=== PATIENT | female | born 1965 | race Caucasian/White ===

== ENCOUNTER 2018-05-14 11:28 | Outpatient (CLI) | payer MEDICARE ==
[~2018-05-14] VITALS: Ht 144.8 cm; Wt 95.5 kg
--- NOTE | ~2018-05-14 | OP ---
PATIENT NAME: MARY BELLO MEDICAL RECORD: [id number] :69 LOCATION:D.CAT ADMISSION DATE: SURGEON: LIBRA CHOWDHURY MD DATE OF OPERATION: 05/14/2018 PROCEDURE: Left heart catheterization, selective coronary angiography, right radial artery approach. CATHETERS: Radial sheath, Loco catheter. The procedure was well tolerated. The patient returned to [facility]. Sheath removed. TR band was placed. FINDINGS: Left ventriculography in 30-degree AUGUSTIN view: Normal wall motion, normal systolic function. CORONARY ANATOMY: LEFT MAIN: Left main is free of disease. LAD: Free of disease as is diagonal system. CIRCUMFLEX: Free of disease in marginal system. RIGHT CORONARY ARTERY: Dominant artery, gives rise to PDA, free of disease. IMPRESSION: Normal systolic function, normal coronary anatomy. TRANSINT:[id number] Voice Confirmation ID: [id number] DOCUMENT ID: [id number] LIBRA CHOWDHURY MD at 1505 CC: [id number] DICTATION DATE: 05/14/18 1441 ANALYTICS ARCHITECT: 05/14/18 1511 DEP CLI 05/14/18 [id number] [place] [address]
--- NOTE | ~2018-05-14 | HEMODYNAMI ---
PATIENT:MARY BELLO MEDICAL RECORD: [id number] : 69 LOCATION:[facility] ADMISSION DATE: 05/14/18 Generatedon:05/14/201814:36 Patient name: MARY BELLO Patient #: [id number] SSN: : 1965 Date of study: 05/14/2018 Page: Of Hemodynamic Procedure Report Patient Data Patient Demographics Procedure consent was obtained First Name: MARY Gender: Female Last Name: EUGENIA : 1965 Middle Initial: MASOUD Age: 52 year(s) Patient #: [id number] Race: Unknown Additional ID: [id number] Contact details [address]: [address] [place] [address] State: [place] City: [place] Zip code: [address] Past Medical History Allergies Allergen Reaction Date Comments Reported Other allergy 05/14/2018 LATEX Admission Admission Data Admission Date: 05/14/2018 Admission Time: 13:30 Admit Source: Other Lab Results Lab Result Date: 05/14/2018 Lab Result Time: 0:00 Biochemistry Name Units Result Min Max BUN mg/dl 12 --(-*--)-- 7 18 Creatinine mg/dl 0.7 --(*---)-- 0.6 1.3 CBC Name Units Result Min Max Hemoglobin g/dl 13.6 --(*---)-- 13.5 17.5 Procedure Procedure Types Cath Procedure Diagnostic Procedure C [place] w/Coronaries Sedation Charges Moderate Sedation up to 15 minutes Procedure Description Procedure Date Procedure Date: 05/14/2018 Procedure Start Time: 14:23 Procedure End Time: 14:35 Procedure Staff Name Function Jose Alfredo Westbrook MD Performing Physician Guillermo Still RN Nurse Yesenia Osman RT Monitor Falguni Izaguirre RT Scrub Procedure Data Cath Procedure Fluoroscopy Diagnostic fluoroscopy Total fluoroscopy Time: 1.8 time: 1.8 min min Diagnostic fluoroscopy Total fluoroscopy dose: 428 dose: 428 mGy mGy Contrast Material Contrast Material Type Amount (ml) Isovue 300 40 Entry Location Entry Primary Successful Side Size Upsize Upsize Entry Closure Meyers ccessful Closure Location (Fr) 1 (Fr) 2 (Fr) Remarks Device Remarks Radial Right 6 Fr Mechanical artery Short Compression Estimated blood loss: 5 ml Diagnostic catheters Device Type Used For End Catheter Placement DIAGNOSTIC [place] 110cm 5 Procedure Fr catheter ([id number]) Procedure Complications No complications Procedure Medications Medication Administration Route Dosage Oxygen NC 2 l/min Lidocaine 2% added to field 20 Heparin Flush Bag added to field 2 bags (1000units/500ml NS) 0.9% NaCl I.V. 100 ml/hr Radial Cocktail I.A. 1 syringe (Verapomil 2mg/Nitro 400mcg/Heparin 1500units) Versed I.V. 1 mg Fentanyl I.V. 50 mcg Versed I.V. 1 mg Fentanyl I.V. 50 mcg Versed I.V. 1 mg Fentanyl I.V. 50 mcg Versed I.V. 1 mg Fentanyl I.V. 50 mcg Hemodynamics Rest HGB: 13.6 (g/dl) Heart Rate: 97 (bpm) Pressure Samples Time Site Value (mmHg) Purpose Heart Use Rate(bpm) 14:29 LV 108/10,9 Snapshot 102 14:29 AO 102/83(92) Pullback 103 14:29 LV 89/24,33 Pullback 103 Gradients Valve Time Site 1 Site 2 Mean SEP/DFP Peak To Heart Use (mmHg) (sec/min) Peak Rate (mmHg) (bpm) Aortic 14:29 LV AO 0 103 89/24,33 102/83(92) Calculations Valve P-P Mean Valve Index Valve Source Name Gradient Area Flow (cm2) Aortic 0 0 Snapshots Pre Cath Intra NCS Post Cath Vital Signs Time Heart Resp SPO2 etCO2 NIBP (mmHg) Rhythm Pain Sedation Rate (ipm) (%) (mmHg) Status Level (bpm) 14:05:19 96 17 100 39.6 139/92(115) NSR 0 (11) 10(A) , No pain 14:09:27 99 21 100 39.6 140/91(104) NSR 0 (11) 10(A) , No pain 14:13:35 99 15 100 39.6 139/87(111) NSR 0 (11) 10(A) , No pain 14:17:41 96 16 100 40.4 130/86(114) NSR 0 (11) 10(A) , No pain 14:21:46 99 14 98 31.4 123/79(99) NSR 0 (11) 10(A) , No pain 14:25:46 98 16 100 39.6 132/83(107) NSR 0 (11) 10(A) , No pain 14:29:54 103 14 98 39.6 115/71(93) NSR 0 (11) 10(A) , No pain 14:33:54 101 15 96 40.3 116/77(101) NSR 0 (11) 10(A) , No pain Medications Time Medication Route Dose Verified Delivered Reason Notes Effectiveness by by 14:03:39 Oxygen NC 2 l/min Jose Alfredo Buffie used for [facility] Still RN procedure 14:03:46 Lidocaine 2% added 20ml Jose Alfredo Jose Alfredo for local to vial On License Of [facility] anesthetic field MD PARKER 14:03:53 Heparin Flush added 2 bags Jose Alfredo Veliz used for Bag to On License Of [facility] procedure (1000units/500ml field MD PARKER NS) 14:04:01 0.9% NaCl I.V. 100 Jose Alfredo Buffie Per ml/hr [facility] Still RN physician 14:04:08 Radial Cocktail I.A. 1 Jose Alfredo Greenory for (Verapomil syringe On License Of [facility] vasodilation 2mg/Nitro MD PARKER 400mcg/Heparin 1500units) 14:16:35 Versed I.V. 1 mg Jose Alfredo Buffie for sedation [facility] Still RN, MD 14:16:42 Fentanyl I.V. 50 mcg Jose Alfredo Jeongie for sedation [facility] Still RN, MD 14:20:16 Versed I.V. 1 mg Jose Alfredo Buffie for sedation [facility] Still RN, MD 14:20:20 Fentanyl I.V. 50 mcg Jose Alfredo Buffie for sedation [facility] Still RN, MD 14:23:37 Versed I.V. 1 mg Jose Alfredo Buffie for sedation [facility] Still RN, MD 14:23:41 Fentanyl I.V. 50 mcg Jose Alfreod Buffie for sedation [facility] Still RN, MD 14:28:09 Versed I.V. 1 mg Jose Alfredo Jeongie for sedation [facility] Still RN, MD 14:28:12 Fentanyl I.V. 50 mcg Jose Alfredo Jeongie for sedation [facility] Still RN, MD Procedure Log Time Note 13:29:04 Informed consent obtained and on chart 13:29:15 Admit Source: Other 13:29:34 Diagnostic Cath status Elective 13:29:39 Time tracking: Regular hours (M-F 7:00 - 5:00) 13:29:42 Plan of Care:Hemodynamics will remain stable., Cardiac rhythm will remain stable., Comfort level will be maintained., Respiratory function will remain adequate., Patient/ family verbilizes understanding of procedure., Procedure tolerated without complication., Recovers from procedure without complications.. 13:46:54 Daniel Resendez RT(R) sent for patient. Start room use. 14:03:39 Oxygen 2 l/min NC was administered by Guillermo Still RN; used for procedure; 14:03:46 Lidocaine 2% 20ml vial added to field was administered by Jose Alfredo Westbrook MD; for local anesthetic; 14:03:53 Heparin Flush Bag (1000units/500ml NS) 2 bags added to field was administered by Jose Alfredo Westbrook MD; used for procedure; 14:04:01 0.9% NaCl 100 ml/hr I.V. was administered by Guillermo Still RN; Per physician; 14:04:08 Radial Cocktail (Verapomil 2mg/Nitro 400mcg/Heparin 1500units) 1 syringe I.A. was administered by Jose Alfredo Westbrook MD; for vasodilation; 14:04:11 Vital chart was started 14:07:38 Patient received from Pre/Post Procedure Room to CCL 2 Alert and oriented. Tansferred to table in Supine position. 14:07:39 Warm blankets applied, and kathryn hugger turned on for patient comfort. 14:07:40 Correct patient and procedure confirmed by team. 14:07:40 ECG and BP/O2 sat monitors applied to patient. 14:07:43 Baseline sample Acquired. 14:07:56 Rhythm: sinus rhythm 14:08:03 Full Disclosure recording started 14:09:10 H&P Date Dictated: 05/08/2018 Within 30 days and on chart., H&P Addendum completed by physician on day of procedure. (MUST COMPLETE FOR ALL OUTPATIENTS). 14:09:27 Pre-procedure instructions explained to patient. 14:09:28 Pre-op teaching completed and patient verbalized understanding. 14:09:40 Family in patients room. 14:09:41 Patient NPO since Midnight. 14:10:02 Patient allergic to Other allergyLATEX 14:10:06 Is the patient allergic to Iodine/contrast media? No. 14:10:40 Is patient on blood thinner?No 14:10:41 Patient diabetic? No. 14:10:45 Previous problem with sedation/anesthesia? No ? 14:10:46 Snore? Yes 14:10:47 Sleep apnea? No 14:10:48 Deviated septum? No 14:10:49 Opens mouth fully? Yes 14:10:50 Sticks out tongue? Yes 14:10:54 Airway obstruction? Yes ASTHMA 14:10:57 Dentures? No ? 14:11:01 Modified Hever's test Ulnar < 7 seconds 14:11:04 Patient pain scale 0/10 ?. 14:11:14 IV patent on arrival in left hand with 0.9% NaCl at [facility]. 14:12:29 Lab Result : Creatinine 0.7 mg/dl 14:12:29 Lab Result : BUN 12 mg/dl 14:12:29 Lab Result : Hemoglobin 13.6 g/dl 14:12:31 Lab results completed and on chart. 14:12:35 Right Radial & Right Groin area was prepped with chlora-prep and draped in sterile fashion 14:12:36 Alarms reviewed by R. N. 14:12:36 Sharps counted by scrub and verified by R.N. 14:12:39 Use device set Radial Dx or PCI 14:12:40 ACIST Syringe (25067) opened to sterile field. 14:12:41 Bag Decanter () opened to sterile field. 14:12:42 ACIST Hand Control (40413) opened to sterile field. 14:12:42 ACIST Manifold (35031) opened to sterile field. 14:12:43 Tegaderm 4 x 4 (1626W) opened to sterile field. 14:12:45 Medline Cath Pack ([id number]) opened to sterile field. 14:12:45 DIAGNOSTIC WIRE .035 260cm J wire (616288) opened to sterile field. 14:12:46 MBrace Wrist Support ([id number]) opened to sterile field. 14:12:47 SHEATH 6Fr Prelude Radial ([id number]) opened to sterile field. 14:16:27 --------ALL STOP TIME OUT------ 14:16:27 Final Timeout: patient, procedure, and site verified with staff and physician. All members of the team are in agreement. 14:16:30 Right Radial & Right Groin site verified by team. 14:16:33 Physical assessment completed. ASA score P 2 - A patient with mild systemic disease as per Jose Alfredo Westbrook MD. 14:16:35 Versed 1 mg I.V. was administered by Guillermo Still RN; for sedation; 14:16:36 Sedation plan: IV Moderate Sedation Medication:Versed, Fentanyl 14:16:42 Fentanyl 50 mcg I.V. was administered by Guillermo Still RN; for sedation; 14:16:45 Zero performed for pressure channel P1 14:20:16 Versed 1 mg I.V. was administered by Guillermo Still RN; for sedation; 14:20:20 Fentanyl 50 mcg I.V. was administered by Guillermo Still RN; for sedation; 14:22:52 Procedure started. 14:23:23 Local anesthetic to right radial artery with Lidocaine 2% by Jose Alfredo Westbrook MD.INITIAL ACCESS ONLY 14:23:37 Versed 1 mg I.V. was administered by Guillermo Still RN; for sedation; 14:23:41 Fentanyl 50 mcg I.V. was administered by Guillermo Still RN; for sedation; 14:27:07 A 6 Fr Short sheath was inserted into the Right Radial artery 14:27:13 A DIAGNOSTIC [place] 110cm 5 Fr catheter (072153) was advanced over the wire and used for Procedure. 14:28:09 Versed 1 mg I.V. was administered by Guillermo Still RN; for sedation; 14:28:12 Fentanyl 50 mcg I.V. was administered by Guillermo Still RN; for sedation; 14:28:56 LV gram done using AUGUSTIN 14:28:59 Injector settings: Ml/sec: 5, Volume: 15, 14:29:30 LV hemodynamics recorded. 14:29:43 EF : 55 % 14:31:24 LCA angiography performed. 14:31:47 RCA angiography performed. 14:31:56 Catheter removed. 14:32:03 Procedure ended.(Physican Out) 14:32:06 TR BAND Standard ([id number]) opened to sterile field. 14:32:12 Sheath removed intact; hemostasis achieved with Mechanical Compression to the Right Radial artery. 14:32:27 Fluoroscopy time 01.80 minutes. 14:32:37 Fluoroscopy dose: 428 mGy 14:32:37 Flurop Dose total: 428 14:32:42 Contrast amount:Isovue 300 40ml. 14:32:50 Sharps counted by scrub and verified by R.N. 14:32:52 TR band inflated with 10cc of air. 14:32:55 Post-procedure physical assessment completed. ASA score P 2 - A patient with mild systemic disease as per Jsoe Alfredo Westbrook MD. 14:33:00 Post procedure rhythm: sinus tachycardia 14:33:14 Estimated blood loss: 5 ml 14:33:17 Post procedure instruction explained to patient.Patient verbalizes understanding. 14:33:17 Patient needs reinforcement of post procedure teaching. 14:33:40 Procedure type changed to Cath procedure, Diagnostic procedure, LHC, LHC w/Coronaries, Sedation Charges, Moderate Sedation up to 15 minutes 14:34:07 Procedure Complication : No complications 14:35:52 Vital chart was stopped 14:35:52 See physician's report for complete and final results. 14:35:54 Report given to Pre/Post Procedure Room. 14:35:56 Patient transfered to Pre/Post Procedure Room with Bed. 14:35:58 Procedure ended. 14:35:58 Full Disclosure recording stopped 14:36:02 End room use (Document Last) Device Usage Item Name Manufacture Quantity Catalog Number Hospital Part Current M inimal Lot# / Charge Number Stock Stock Serial# Code ACIST Syringe Acist 1 86999 854819 291856 316351 2 0 (91181) [employer] Bag Decanter Microtek 1 049119 13318 106316 5 () Medical Inc. ACIST Hand Acist 1 04343 366573 418082 144376 5 Control (69284) [employer] Inc ACIST Manifold Acist 1 62522 679366 364533 045264 5 (27787) [employer] Inc Tegaderm 4 x 4 3M 1 1626W 109082 662944 610304 5 (1626W) Medline Cath Cardinal 1 [id number] 042910 84251 611217 5 Pack ItsPlatonic ([id number]) DIAGNOSTIC WIRE [facility] Anson 1 689338 927283 201017 967725 3 0 .035 260cm J wire (984344) MBrace Wrist Advanced 1 140-0250-00 353384 34824 761357 5 Support Vascular ([id number]) Dynamics SHEATH 6Fr Merit 1 [id number] 572593 628279 818827 5 Prelude Radial Medical ([id number]) DIAGNOSTIC Terumo 1 40-5885 086220 969629 345289 5 Chelsea 110cm 5 Fr catheter (758809) TR BAND Terumo 1 [id number] 415100 133155 681802 4 0 Standard ([id number]) Signature Audit [place] Stage Time Signature Unsigned Intra-Procedure 05/14/2018 Yesenia Osman 2:36:47 PM RT(R) Signatures Monitor : Yesenia Osman Signature : RT Date : Time : [address] [place] [address]
[2018-05-14] MEDS ORDERED: ZOCOR40 MG PO (11:40)
[2018-05-14] MEDS ORDERED: HYZAAR 50-12.51 TAB PO (11:40)
[2018-05-14] MEDS ORDERED: ZANAFLEX4 MG PO (11:40)
[2018-05-14] MEDS ORDERED: SINGULAIR10 MG PO (11:41)
[2018-05-14] MEDS ORDERED: AMITRIPTYLINE H50 MG PO (11:41)
[2018-05-14] MEDS ORDERED: BYSTOLIC5 MG PO (11:41)
[2018-05-14] MEDS ORDERED: K-TAB10 MEQ PO (11:42)
[2018-05-14] MEDS ORDERED: PROBIOTIC250 MG PO (11:42)
[2018-05-14] MEDS ORDERED: ZANTAC150 MG PO (11:42)
[2018-05-14] MEDS ORDERED: MULTIPLE VITAMI1 TA1 PO (11:42)
[2018-05-14] MEDS ORDERED: CALCIUM 600+D T1 TA1 PO (11:43)
[2018-05-14] MEDS ORDERED: BAYER CHEWABLE81 MG PO (11:43)
[2018-05-14] MEDS ORDERED: CRANBERRY 400 M1 TA1 PO (11:43)
[2018-05-14] MEDS ORDERED: KRILL OIL 1,001 EAC1 PO (11:44)
[2018-05-14] MEDS ORDERED: MERIBIN5 MG PO (11:44)
[2018-05-14 11:51] VITALS: BP 139/75; Ht 144.8 cm; Wt 95.5 kg
[2018-05-14 12:05] LABS: BASOPHILS 0.3 % (0-2); EOSINOPHILS 4.9 % (0-7); HEMATOCRIT 40.7 % (36.0-48.0); HEMOGLOBIN 13.6 g/dL (12-16); IMMATURE GRANULOCYTES 0.1 % (0-5); LYMPHOCYTES 24.8 % (15-50); MCH 30.9 pg (26.0-34.0); MCHC 33.4 g/dL (31.0-37.0); MCV 92.5 fL (80.0-100.0); MEAN PLATELET VOLUME 10.9 fL (7.4-10.4); MONOCYTES 8.2 % (2-11); NEUTROPHILS 61.7 % (40-80); PLATELET COUNT 380 10x3/uL (130-400); RDW 13.3 % (11.5-14.5); WBC 7.3 10x3/uL (4.8-10.8)
[2018-05-14 12:48] LABS: HCG SERUM NEGATIVE (NEGATIVE)
[2018-05-14 12:56] LABS: CALC OSMOLALITY 277 mosm/kg (275-300); CALCIUM 9.2 mg/dL (8.5-10.1); CARBON DIOXIDE 30.9 mmol/L (21.0-32.0); CHLORIDE - SERUM 100 mmol/L (98-107); CREATININE - SERUM 0.7 mg/dL (0.6-1.3); GLUCOSE 105 mg/dL (74-106); POTASSIUM - SERUM 3.9 mmol/L (3.5-5.1); SODIUM 139 mmol/L (136-145); UREA NITROGEN 12 mg/dL (7-18); eGFR NON AFRICAN AMERICAN > 90 mL/min (90-120)
== END 2018-05-14 23:59 | disposition home or self-care (01) ==
LOC: D.CATH 11:28
PROVIDERS: Internal Medicine Interventional Cardiology
DX: I20.9 Angina pectoris, unspecified (principal); Z01.812 Encounter for preprocedural laboratory examination

== ENCOUNTER 2019-11-01 07:05 | Day surgery (SDC) | payer MEDICARE ==
[~2019-11-01] VITALS: Ht 144.8 cm; Wt 80.5 kg
[~2019-11-01 07:05] MED LIST: AMITRIPTYLINE H50 MG PO; BAYER CHEWABLE81 MG PO; BYSTOLIC5 MG PO; CALCIUM 600+D T1 TA1 PO; CRANBERRY 400 M1 TA1 PO; HYZAAR 50-12.51 TAB PO; K-TAB10 MEQ PO; KRILL OIL 1,001 EAC1 PO; MERIBIN5 MG PO; MULTIPLE VITAMI1 TA1 PO; PROBIOTIC250 MG PO; SINGULAIR10 MG PO; ZANAFLEX4 MG PO; ZANTAC150 MG PO; ZOCOR40 MG PO
[2019-11-01 07:29] LABS: HEMATOCRIT 42.2 % (36.0-48.0); HEMOGLOBIN 13.8 g/dL (12-16); MCH 29.8 pg (26.0-34.0); MCHC 32.7 g/dL (31.0-37.0); MCV 91.1 fL (80.0-100.0); MEAN PLATELET VOLUME 10.7 fL (7.4-10.4); RBC 4.63 10x6/uL (4.00-5.40); RDW 12.7 % (11.5-14.5); WBC 6.4 10x3/uL (4.8-10.8)
[2019-11-01 07:41] LABS: CALC OSMOLALITY 277 mosm/kg (275-300); CALCIUM 8.9 mg/dL (8.5-10.1); CARBON DIOXIDE 30.6 mmol/L (21.0-32.0); CHLORIDE - SERUM 103 mmol/L (98-107); CREATININE - SERUM 0.7 mg/dL (0.6-1.3); GLUCOSE 113 mg/dL (74-106); POTASSIUM - SERUM 3.8 mmol/L (3.5-5.1); SODIUM 139 mmol/L (136-145); UREA NITROGEN 9 mg/dL (7-18); eGFR NON AFRICAN AMERICAN > 90 mL/min (90-120)
[2019-11-01] MEDS ORDERED: HYDROCHLOROTHIA50 MG PO (08:13)
[2019-11-01] MEDS ORDERED: COZAAR50 MG PO (08:13)
[2019-11-01] MEDS ORDERED: LINZESS145 MCG PO (08:14)
[2019-11-01] MEDS ORDERED: METFORMIN HCL500 M1 PO (08:14)
[2019-11-01] MEDS ORDERED: POTASSIUM CHLO10 ME1 PO (08:15)
[2019-11-01] MEDS ORDERED: ZOCOR40 MG PO (08:15)
[2019-11-01] MEDS ORDERED: SINGULAIR10 MG PO (08:15)
[2019-11-01 08:21] LABS: HCG SERUM NEGATIVE (NEGATIVE)
[2019-11-01 08:29] VITALS: BP 103/63; Ht 144.8 cm; Wt 80.5 kg
--- NOTE | 2019-11-01 10:16 | NUR ---
0947 IV DC'D. CATHETER TIP INTACT. NO BLEEDING AT SITE. BANDAID APPLIED. PT VOICES UNDERSTANDING OF DISCHARGE INSTRUCTIONS.
--- NOTE | 2019-11-01 18:07 | OP ---
PATIENT NAME: MARY BELLO MEDICAL RECORD: [id number] :69 LOCATION:[facility] ADMISSION DATE: SURGEON: ALETHEA SCHWARZ DO DATE OF OPERATION: 11/01/2019 PROCEDURE: Colonoscopy. INDICATIONS FOR PROCEDURE: Altered bowel function, left upper quadrant abdominal pain. SCOPE: Olympus video pediatric colonoscope. MEDICATIONS: Propofol 330 mg IV per anesthesia. WITHDRAWAL TIME: 8 minutes. ESTIMATED BLOOD LOSS: None. COMPLICATIONS: None. FINDINGS: Informed consent was given. The patient was made comfortable with the above medication. After reaching an adequate level of sedation by slow IV push, the patient was placed on her left side. A digital rectal examination was performed and was normal. The endoscope was advanced under direct visualization through the rectum to the cecum, confirmed by the presence of the appendiceal orifice and ileocecal valve. The endoscope was slowly withdrawn and mucosa was carefully examined. The prep quality was good in the left side of the colon, but as the ascending colon and cecum was reached, the prep quality was poor. There were no polyps visualized on today's examination. The terminal ileum was intubated. Retroflexion was performed in the rectum with visualization of grade I internal hemorrhoids without bleeding. There were no other abnormalities on today's examination. The endoscope was withdrawn from the patient. The patient tolerated the procedure well and there were no complications. IMPRESSION: 1. Mild diverticulosis of the sigmoid colon. 2. Grade I internal hemorrhoids without bleeding. PLAN AND RECOMMENDATIONS: 1. Discharge home when recovery parameters are met. 2. Follow up biopsy specimen results. 3. High fiber diet. 4. Continue current medications including Linzess for chronic idiopathic constipation. 5. Notify the GI clinic if symptoms worsen or fail to improve. 6. Recall colonoscopy in 2-3 years for colorectal cancer screening purposes. TRANSINT:[id number] Voice Confirmation ID: [id number] DOCUMENT ID: [id number] OPERATIVE REPORT [id number] MARY BELLO ALETHEA SCHWARZ DO at 1807 CC: [id number] DICTATION DATE: 11/01/19928 ACCOUNTING MANAGER CPA: 11/01/19 1630 [facility] 11/01/19 [place] [address]
== END 2019-11-01 10:05 | disposition home or self-care (01) ==
LOC: D.OPS 07:05
PROVIDERS: Anesthesiology; ATTEND Internal Medicine Gastroenterology
DX: R19.4 Change in bowel habit (principal); R10.12 Left upper quadrant pain; K57.30 Diverticulosis of large intestine without perforation or abscess without bleeding; R12 Heartburn